=== PATIENT | male | born 2000 | race Caucasian/White ===

== ENCOUNTER 2020-12-11 19:23 | Emergency (ER) | payer OTHER ==
[~2020-12-11] VITALS: Ht 180.3 cm; Wt 74.8 kg
[2020-12-11] MEDS ORDERED: CLONAZEPAM 0.50.5 M1 PO ×2 (19:34→19:35)
[2020-12-11] MEDS ORDERED: PAXIL 20 MG TAB20 M1 PO (19:35)
[2020-12-11 21:02] VITALS: BP 127/84
== END 2020-12-11 21:04 | disposition home or self-care (01) ==
LOC: ER 19:23
DX: S01.01XA Laceration without foreign body of scalp, initial encounter (principal); F10.129 Alcohol abuse with intoxication, unspecified; F41.9 Anxiety disorder, unspecified; F12.90 Cannabis use, unspecified, uncomplicated; Z79.899 Other long term (current) drug therapy; W18.39XA Other fall on same level, initial encounter; Y93.89 Activity, other specified; Y92.89 Other specified places as the place of occurrence of the external cause; Y99.8 Other external cause status